=== PATIENT | male | born 1965 | race Caucasian/White ===

== ENCOUNTER 2022-03-14 11:21 | Emergency (ER) | payer OTHER ==
[~2022-03-14] VITALS: Ht 157.5 cm; Wt 72.6 kg
[2022-03-14 11:21] VITALS: BP_SYST 184
--- NOTE | 2022-03-14 11:21 | NUR ---
Patient to ER bed 3 for evaluation. Side rails up. Report given to Sharyn MONTILLA.
--- NOTE | 2022-03-14 11:35 | NUR ---
ER at bedside examining patient.
--- NOTE | 2022-03-14 11:40 | NUR ---
Pt to bed #3 [place]IB[place] from [place] that states he had chest pain 9/10 ealier this morning but currently right now his chest pain is subsiding and rates it 2/10 non-radiant and is intermittent. Pt is A&Ox4. Skin intact. No sob and no n/v. NKA. Only has hx of DM. Bed in lowest position.
--- NOTE | 2022-03-14 11:49 | NUR ---
EKG performed at BS by myself. Physician given copy of EKG for review.
[2022-03-14 12:33] LABS: BASOPHILS % (AUTO) 0.5 % (0.0-2.0); EOSINOPHILS # (AUTO) 0.1 K/uL (0.0-0.4); EOSINOPHILS % (AUTO) 2.4 % (0.0-4.0); HEMATOCRIT 37.5 % (36-54); HEMOGLOBIN 12.9 g/dL (14.0-18.0); LYMPHOCYTES # (AUTO) 1.5 K/uL (1.0-5.5); LYMPHOCYTES % (AUTO) 35.4 % (20.5-51.5); MEAN CORPUSCULAR HEMOGLOBIN 30 pg (27-31); MEAN CORPUSCULAR HGB CONC 34 % (32-36); MEAN CORPUSCULAR VOLUME 87 fL (79.0-98.0); MONOCYTES # (AUTO) 0.4 K/uL (0.0-1.0); MONOCYTES % (AUTO) 10.5 % (1.7-9.3); NEUTROPHILS # (AUTO) 2.1 K/uL (1.8-7.7); NEUTROPHILS % (AUTO) 51.2 % (40.0-70.0); PLATELET COUNT (AUTO) 251 K/uL (130-430); RED CELL DISTRIBUTION WIDTH 13.1 % (9.0-15.0); WHITE BLOOD COUNT (AUTO) 4.2 K/uL (4.8-10.8)
[2022-03-14 12:45] LABS: ANION GAP 3 (5-15); CALCIUM 9.9 mg/dL (8.4-11.0); CHLORIDE 102 mmol/L (98-107); CREATININE 0.88 mg/dL (0.55-1.30); GLUCOSE 201 mg/dL (70-99); POTASSIUM 4.2 mmol/L (3.5-5.1); SODIUM SERUM 138 mmol/L (136-145); UREA NITROGEN, BLOOD 15 mg/dL (8-21)
[2022-03-14 12:51] LABS: GFR AFRICAN AMERICAN 115 mL/min (>90)
[2022-03-14 12:53] LABS: ALANINE AMINOTRANSFERASE 38 U/L (12-78); ALBUMIN 3.5 g/dL (3.4-4.8); ASPARTATE AMINOTRANSFERASE 23 U/L (10-37); TOTAL BILIRUBIN 0.1 mg/dL (0.0-1.0)
--- NOTE | 2022-03-14 13:33 | NUR ---
Dr. Jordan made aware of pt's BP at 184/76. No new orders at this time.
--- NOTE | 2022-03-14 15:10 | NUR ---
All cares assumed (ELADIA Stover)
--- NOTE | 2022-03-14 15:33 | NUR ---
Patient remains on monitor in no acute distress, calm and cooperative
--- NOTE | 2022-03-14 16:05 | NUR ---
MD seeing patient at bedside
--- NOTE | 2022-03-14 18:46 | NUR ---
Patient to be transferred to [facility]. Is being transferred due to higher level of care. Receiving facility has accepting physician and available space. ER physician has signed transfer form. Patient or responsible constitution party has agreed to transfer and signed form. Patient belongings inventoried and will be sent with patient. Copy of nursing notes, lab reports, EKG, Physicians Orders and X-rays to be sent with patient. Report called to ELADIA HILL at receiving facility. Receiving physician is DR. BUTLER. Ambulance service has been called for transfer. ETA is [id number].
[2022-03-14 19:12] VITALS: BP_SYST 189
--- NOTE | 2022-03-14 19:12 | NUR ---
[facility] HERE TO TRANSPORT PT TO [facility]
== END 2022-03-14 19:12 | disposition short-term general hospital (02) ==
LOC: SED 11:21
DX: R07.9 Chest pain, unspecified (principal); R00.8 Other abnormalities of heart beat
CPT/HCPCS: 36415; 71045; 80053; 84484; 85025; 99285